=== PATIENT | female | born 1980 | race Caucasian/White ===

== ENCOUNTER 2018-03-19 | Emergency (ER) | payer SELFPAY | END 2018-03-19 17:04 | disposition home or self-care (01) ==

== ENCOUNTER 2018-06-04 08:26 | Emergency (ER) | payer SELFPAY ==
[2018-06-04] MEDS ORDERED: LORazepam 1 MG TAB PO ONE (09:02)
--- NOTE | 2018-06-04 09:30 | EDPHY ---
H & P Time Seen by Provider: 06/04/18 08:30 HPI/ROS: CHIEF COMPLAINT: I feel sick, itchy skin, painful fingers, rash HISTORY OF PRESENT ILLNESS: This is a 38-year-old female who presents with a number of complaints. Over the last month she has been bothered by intermittent nausea with 1 bout of vomiting. She reports intermittent episodes where she develops a rash the inside of her fingers, around her neck, in her scalp, on her legs, which is described as small macular papular rash, may be like hives, it is itchy. No fever. No lip swelling or eyelid swelling associated with the rash. No clear cause of the rash. Patient states she believes it looks like a fungal infection. states that he thinks is related to anxiety. She has been taking Benadryl 50 mg 1 to 2 times a day and has also smoked marijuana in an effort to control the rash. Currently there is no rash which is present. Patient denies any known allergens. Denies any known rheumatologic disorders. She reports that her finger tips are often burning and quite painful. She reports significant anxiety and significant itching of the skin. No fevers or chills, no chest pain, occasional cough, no shortness of breath. No palpitations. No diarrhea, urinary complaints, known renal disease, no liver abnormalities, no headache or lightheadedness. She does not have primary care physician. Moved to [place] 6 months ago. She does report drinking alcohol, using marijuana, and reports intermittent use of cocaine, last use 1-2 weeks ago. When asked why the patient present to the emergency department today, sounds like her thought they needed to get to the bottom of the issue. Again, she has no rash present at this time. Review of the patient's records: Patient was seen at [facility] in March for altered mental status and agitation thought to be related to cocaine use. REVIEW OF SYSTEMS: A comprehensive 10 system review of systems was reviewed and is otherwise negative aside from elements mentioned in the history of present illness and medical decision making. PAST MEDICAL HISTORY: Depression and anxiety. Past history of cocaine use. SOCIAL HISTORY: . Alcohol, no cigarettes, smokes marijuana, admits to using cocaine. VITAL SIGNS Reviewed by me. GENERAL: Well-developed, well-nourished, exceedingly anxious, somewhat agitated , pressured speech. HEENT: Atraumatic. Eyes: No icterus, no injection. Pupils are 5 mm bilaterally. Mouth: moist mucous membranes. No erythema or lesions. Neck: supple with no adenopathy. LUNGS: Persistent rhonchi at the right lower lobe, no wheezes. CARDIAC: Regular rate and rhythm, no rubs, murmurs or gallops. ABDOMEN: Soft, nontender, nondistended, bowel sounds normal. No right upper quadrant tenderness. BACK: No CVA tenderness. EXTREMITIES: No trauma. No edema. Range of motion is normal throughout. NEURO: Alert and oriented, grossly nonfocal. SKIN: Warm and dry, no rashes visible. Patient's right ear is slightly erythematous and she states it feels like it is on fire. PSYCHIATRIC: Normal mentation. Seems somewhat agitated. Smoking Status: Never smoked Constitutional: Initial Vital Signs Temperature (C) 37.4 C 06/04/18 08:32 Heart Rate 93 06/04/18 08:32 Respiratory Rate 16 06/04/18 08:32 Blood Pressure 150/98 H 06/04/18 08:32 O2 Sat (%) 95 06/04/18 08:32 O2 Delivery Mode Room Air Allergies/Adverse Reactions: No Known Allergies Allergy (Verified 06/04/18 08:36) Home Medications: Medication Instructions Recorded LORazepam [Ativan] 0.5 - 1 mg PO Q12 #8 tablet 06/04/18 Medical Decision Making ED Course/Re-evaluation: I did obtain interview with the patient and her as well as interviewing the patient on her own. Due to the patient's rhonchi and reports of occasional cough, chest x-ray was obtained. Laboratory evaluation including renal functions and liver function tests were ordered. Discussed with the patient the need to avoid excessive doses of Benadryl. She is quite thin and she may have some agitation secondary to overuse of Benadryl. I did provide 1 mg of Ativan. Chest x-ray: No acute findings noted. Patient's labs were unremarkable. I believe a significant portion of the patient's current symptomatology is related to anxiety coupled with illicit drug use. Discussed with her individually importance of obtaining a primary care physician , avoid illicit drug use, avoiding excessive amounts of Benadryl, stop using cocaine and or other illicit drugs, and to follow up as directed. Differential Diagnosis: Differential diagnosis for the patient's presenting complaint was considered including but not limited to anxiety, drug or alcohol use, drug or alcohol withdrawal, contact dermatitis, allergic reaction, renal insufficiency with uremia. - Data Points Laboratory Results: 06/04/18 06/04/18 10:34 10:17 POC Sodium 137 mEq/L mEq/L (135-145) POC Potassium 4.1 mEq/L mEq/L (3.3-5.0) POC Chloride 108.0 mEq/L mEq/L (97-110) POC Total CO2 27 mEq/L mEq/L (22-31) POC BUN 8 mg/dL mg/dL (7-23) POC Creatinine 0.6 mg/dL mg/dL (0.6-1.0) POC Glucose 89 mg/dL mg/dL (70-100) POC Calcium 10.0 mg/dL mg/dL (8.5-10.4) POC Total Bilirubin 0.7 mg/dL mg/dL (0.1-1.4) POC GGT 28 IU/L IU/L (5-65) POC AST 36 IU/L IU/L (14-46) POC ALT 12 IU/L IU/L (9-52) POC Alk Phosphatase 80 IU/L IU/L (38-126) POC Total Protein 8.6 g/dL H g/dL (6.3-8.2) POC Albumin 4.5 g/dL g/dL (3.5-5.0) POC Amylase 46 IU/L IU/L (30-110) Medications Given: Discontinued Medications Lorazepam (Ativan) 1 mg PO EDNOW ONE Stop: 06/04/18 09:03 Last Admin: 06/04/18 09:20 Dose: 1 mg Point of Care Test Results: CBC CBC Collection Date 06/04/18 CBC Collection Time 09:10 WBC 8.5 RBC 4.52 HGB 13.5 HCT 40.7 PLT 314 Neut # 6.2 Neut 72.9 LYMPH # 1.9 LYMPH 22.4 Other WBC # 0.4 Other WBC 4.7 MCV 90 Chemistry 06/04/18 06/04/18 10:34 10:17 POC Sodium 137 mEq/L mEq/L (135-145) POC Potassium 4.1 mEq/L mEq/L (3.3-5.0) POC Chloride 108.0 mEq/L mEq/L (97-110) POC Total CO2 27 mEq/L mEq/L (22-31) POC BUN 8 mg/dL mg/dL (7-23) POC Creatinine 0.6 mg/dL mg/dL (0.6-1.0) POC Glucose 89 mg/dL mg/dL (70-100) POC Calcium 10.0 mg/dL mg/dL (8.5-10.4) POC Total Bilirubin 0.7 mg/dL mg/dL (0.1-1.4) POC GGT 28 IU/L IU/L (5-65) POC AST 36 IU/L IU/L (14-46) POC ALT 12 IU/L IU/L (9-52) POC Alk Phosphatase 80 IU/L IU/L (38-126) POC Total Protein 8.6 g/dL H g/dL (6.3-8.2) POC Albumin 4.5 g/dL g/dL (3.5-5.0) POC Amylase 46 IU/L IU/L (30-110) Urine Collection Date 06/04/18 Collection Time 09:30 HCG Results Negative Departure - Departure Disposition: Home, Routine, Self-Care Clinical Impression: History of a rash, Anxiety, Pruritus Condition: Good Instructions: Acute Rash (ED), Anxiety (ED) Additional Instructions: You been given a short prescription for Ativan to use as needed for anxiety. Stop using illicit drugs including cocaine, methamphetamines, opiates. Do not drink alcohol in excessive quantities. Please follow up with your primary care physician for further evaluation of your symptoms as well as your rash. Consider taking a picture of the rash so further evaluation can be obtained. You been given referral to both doctor, Danny Delgado, at the [facility] offices as well as Dr. Yue Marcial who is offices are here at the [facility]. Referrals: Gustavo Delgado MD [[facility] Primary Care Provider] - As per Instructions Yue Marcial MD [Medical Doctor] - As per Instructions [facility] [[facility]] - As per Instructions (Call to establish care at [facility] or at [facility])
[2018-06-04 10:28] VITALS: BP 142/96
== END 2018-06-04 10:20 | disposition home or self-care (01) ==
LOC: CED 08:26
DX: L29.9 Pruritus, unspecified (principal); F41.8 Other specified anxiety disorders; R11.2 Nausea with vomiting, unspecified; F19.99 Other psychoactive substance use, unspecified with unspecified psychoactive substance-induced disorder; Z87.2 Personal history of diseases of the skin and subcutaneous tissue
CPT/HCPCS: 71046-PO; 80048-PO; 80076-PO; 82150-PO

== ENCOUNTER 2018-11-04 07:35 | Emergency (ER) | payer OTHER ==
[2018-11-04 07:39] VITALS: BP 143/95
--- NOTE | 2018-11-04 08:14 | EDPHY ---
H & P Stated Complaint: scalp infection Time Seen by Provider: 11/04/18 08:02 - Personal History LMP (Females 10-55): 15-21 Days Ago Current Tetanus/Diphtheria Vaccine: Yes - Medical/Surgical History Hx Asthma: No Hx Chronic Respiratory Disease: No Hx Diabetes: No Hx Cardiac Disease: No Hx Renal Disease: No Hx Cirrhosis: No Hx Alcoholism: No Other PMH: Denies. mj user. cocaine 05/18 - Social History Smoking Status: Never smoked Constitutional: Initial Vital Signs Temperature (C) 37.2 C 11/04/18 07:37 Heart Rate 104 H 11/04/18 07:37 Respiratory Rate 16 11/04/18 07:37 Blood Pressure 143/95 H 11/04/18 07:37 O2 Sat (%) 96 11/04/18 07:37 O2 Delivery Mode Room Air Allergies/Adverse Reactions: No Known Allergies Allergy (Verified 11/04/18 07:39) Home Medications: Medication Instructions Recorded LORazepam [Ativan] 0.5 - 1 mg PO Q12 #8 tablet 06/04/18 Fluconazole [Diflucan (*)] 150 mg PO DAILY #3 tab 11/04/18 Medical Decision Making ED Course/Re-evaluation: CHIEF COMPLAINT: Scalp fungus HISTORY OF PRESENT ILLNESS: 38-year-old female who claims that she has a scalp fungus. She states that she has had before. She states her scalp spine itching for several days. She denies any lesions, bugs, any other source. REVIEW OF SYSTEMS: A comprehensive 10 system review of systems is otherwise negative aside from elements mentioned in the history of present illness and medical decision making. PHYSICAL EXAM: HR, BP, O2 Sat, RR. Temp noted General Appearance: Alert, well hydrated, appropriate, and non-toxic appearing. Head: Atraumatic without scalp tenderness or obvious injury Eyes: Pupils equal, round, reactive to light and accommodation, EOMI, no trauma , no injection. Ears: Clear bilaterally, no perforation, normal landmarks Nose: Atraumatic, no rhinorrhea, clear. Throat: There is no erythema or exudates, no lesions, normal tonsils, mucus membranes moist. Neck: Supple, 2+ carotid upstroke, nontender, no lymphadenopathy. Respiratory: No retractions, no distress, no wheezes, and no accessory muscle use. Lungs are clear to auscultation bilaterally. Cardiovascular: Regular rate and rhythm, no murmurs, rubs, or gallops. Bilateral carotid, radial, dorsalis pedis, and posterior tibial pulses intact. Good capillary refill all extremities. Gastrointestinal: Abdomen is soft, nontender, non-distended, no masses, no rebound, no guarding, no peritoneal signs. Musculoskeletal: Normal active ROM of all extremities, atraumatic. Neurological: Alert, appropriate, and interactive. The patient has normal DTRs and non-focal cranial nerves, motor, sensory, and cerebellar exam. Skin: The scalp is somewhat red and excoriated but I cannot tell if it is from her scratching or not. Otherwise, No rashes, good turgor, no nodules on palpation. Past medical history: Noncontributory Past surgical history: Noncontributory Family history: Noncontributory Social history: Single, employed, does not abuse tobacco drugs or alcohol DIFFERENTIAL DIAGNOSIS: Includes but is not limited to: Scalp fungus, parasite, lice, topical dermatitis MEDICAL DECISION MAKING: This patient has a slightly red scalp. I can't tell if it is from fungus or any other source but I do not see any other abnormalities. She may just be itching her scalp quite a bit. I will treat her with fluconazole 150 mg q.day x3 and have her follow up with Dermatology. Departure - Departure Disposition: Home, Routine, Self-Care Clinical Impression: Fungal scalp infection Condition: Good Instructions: Tinea Versicolor (ED) Referrals: NONE *PRIMARY CARE P,. [Primary Care Provider] - As per Instructions [facility],. [Clinic] - As per Instructions Prescriptions: Fluconazole [Diflucan (*)] 150 mg PO DAILY #3 tab
== END 2018-11-04 08:27 | disposition home or self-care (01) ==
DX: B35.0 Tinea barbae and tinea capitis (principal)

== ENCOUNTER 2018-11-04 10:55 | Emergency (ER) | payer OTHER ==
[2018-11-04 11:01] VITALS: BP 149/98
--- NOTE | 2018-11-04 11:22 | EDPHY ---
H & P Stated Complaint: Skin rash Time Seen by Provider: 11/04/18 11:22 - Personal History LMP (Females 10-55): 15-21 Days Ago Current Tetanus/Diphtheria Vaccine: Yes - Medical/Surgical History Hx Asthma: No Hx Chronic Respiratory Disease: No Hx Diabetes: No Hx Cardiac Disease: No Hx Renal Disease: No Hx Cirrhosis: No Hx Alcoholism: No Other PMH: Denies. mj user. cocaine 05/18 - Social History Smoking Status: Never smoked Constitutional: Initial Vital Signs Temperature (C) 36.9 C 11/04/18 10:59 Heart Rate 112 H 11/04/18 10:59 Respiratory Rate 18 11/04/18 10:59 Blood Pressure 149/98 H 11/04/18 10:59 O2 Sat (%) 100 11/04/18 10:59 O2 Delivery Mode Room Air Allergies/Adverse Reactions: No Known Allergies Allergy (Verified 11/04/18 11:01) Home Medications: Medication Instructions Recorded LORazepam [Ativan] 0.5 - 1 mg PO Q12 #8 tablet 06/04/18 Fluconazole [Diflucan (*)] 150 mg PO DAILY #3 tab 11/04/18 Medical Decision Making ED Course/Re-evaluation: CHIEF COMPLAINT: Scalp fungus HISTORY OF PRESENT ILLNESS: 38-year-old female who claims that she has a scalp fungus. She states that she has had before. She states her scalp spine itching for several days. I saw this patient in the ER and she was discharged home with fluconazole 150 mg q.day x3 and have her follow up with Dermatology. After going home she took a shower and the Fluonazole but things that it is all over her body. She denies any lesions, bugs, any other source. REVIEW OF SYSTEMS: A comprehensive 10 system review of systems is otherwise negative aside from elements mentioned in the history of present illness and medical decision making. PHYSICAL EXAM: HR, BP, O2 Sat, RR. Temp noted General Appearance: Alert, well hydrated, appropriate, and non-toxic appearing. Head: Atraumatic without scalp tenderness or obvious injury Eyes: Pupils equal, round, reactive to light and accommodation, EOMI, no trauma , no injection. Ears: Clear bilaterally, no perforation, normal landmarks Nose: Atraumatic, no rhinorrhea, clear. Throat: There is no erythema or exudates, no lesions, normal tonsils, mucus membranes moist. Neck: Supple, 2+ carotid upstroke, nontender, no lymphadenopathy. Respiratory: No retractions, no distress, no wheezes, and no accessory muscle use. Lungs are clear to auscultation bilaterally. Cardiovascular: Regular rate and rhythm, no murmurs, rubs, or gallops. Bilateral carotid, radial, dorsalis pedis, and posterior tibial pulses intact. Good capillary refill all extremities. Gastrointestinal: Abdomen is soft, nontender, non-distended, no masses, no rebound, no guarding, no peritoneal signs. Musculoskeletal: Normal active ROM of all extremities, atraumatic. Neurological: Alert, appropriate, and interactive. The patient has normal DTRs and non-focal cranial nerves, motor, sensory, and cerebellar exam. Skin: The scalp is somewhat red and excoriated but I cannot tell if it is from her scratching or not. Otherwise, No rashes, good turgor, no nodules on palpation. Past medical history: Marijuana use, cocaine use Past surgical history: Noncontributory Family history: Noncontributory Social history: Single, employed, does not abuse tobacco or alcohol DIFFERENTIAL DIAGNOSIS: Includes but is not limited to: Scalp fungus, parasite, lice, topical dermatitis MEDICAL DECISION MAKIN-year-old female who claims that she has a scalp fungus. She states that she has had before. She states her scalp spine itching for several days. I saw this patient in the ER earlier today and she was discharged home with fluconazole 150 mg q.day x3 and have her follow up with Dermatology. After going home she took a shower and the Fluonazole but things that it is all over her body. I cannot find anything new on exam. I question if she has been using meth. 20mg PO Prednisone administered. Return precautions provided; patient is comfortable with this plan. Departure - Departure Disposition: Home, Routine, Self-Care Clinical Impression: Itchy skin Condition: Good Instructions: Itchy Skin (ED) Additional Instructions: 1. Follow-up with your primary doctor within 72 hours. 2. Return to the Emergency Department for fever, chest pain, shortness of breath , increasing pain or other worsening of condition. Referrals: [facility],. [Clinic] - As per Instructions Report Scribed for: Severino Crowell Report Scribed by: Nory Denton Date of Report: 11/04/18 Time of Report: 11:30
[2018-11-04] MEDS ORDERED: predniSONE 20 MG TAB PO ONE (11:32)
== END 2018-11-04 11:50 | disposition home or self-care (01) ==
DX: L29.9 Pruritus, unspecified (principal)
CPT/HCPCS: J7512

== ENCOUNTER 2018-11-04 12:13 | Emergency (ER) | payer OTHER ==
[2018-11-04 12:22] VITALS: BP 157/106
--- NOTE | 2018-11-04 12:52 | EDPHY ---
H & P Stated Complaint: Itchy scalp Time Seen by Provider: 11/04/18 12:51 - Personal History Current Tetanus/Diphtheria Vaccine: Yes Current Tetanus Diphtheria and Acellular Pertussis (TDAP): Yes - Medical/Surgical History Hx Asthma: No Hx Chronic Respiratory Disease: No Hx Diabetes: No Hx Cardiac Disease: No Hx Renal Disease: No Hx Cirrhosis: No Hx Alcoholism: No Other PMH: Denies. mj user. cocaine 05/18 - Social History Smoking Status: Never smoked Constitutional: Initial Vital Signs Temperature (C) 36.9 C 11/04/18 12:20 Heart Rate 111 H 11/04/18 12:20 Respiratory Rate 16 11/04/18 12:20 Blood Pressure 157/106 H 11/04/18 12:20 O2 Sat (%) 99 11/04/18 12:20 O2 Delivery Mode Room Air Allergies/Adverse Reactions: No Known Allergies Allergy (Verified 11/04/18 12:17) Home Medications: Medication Instructions Recorded NK [No Known Home Meds] 11/04/18 Medical Decision Making ED Course/Re-evaluation: CHIEF COMPLAINT: Psychiatric evaluation HISTORY OF PRESENT ILLNESS: must have 4 elements: Location, Quality, Severity , Duration, Timing, Context, Modifying Factors, Associated Signs and Symptoms REVIEW OF SYSTEMS: A comprehensive 10 system review of systems is otherwise negative aside from elements mentioned in the history of present illness and medical decision making. PHYSICAL EXAM: General Appearance: Alert, well hydrated, appropriate, and non-toxic appearing. Head: Atraumatic without scalp tenderness or obvious injury Eyes: Pupils equal, round, reactive to light and accommodation, EOMI, no trauma , no injection. Ears: Clear bilaterally, no perforation, normal landmarks Nose: Atraumatic, no rhinorrhea, clear. Throat: There is no erythema or exudates, no lesions, normal tonsils, mucus membranes moist. Neck: Supple, 2+ carotid upstroke, nontender, no lymphadenopathy. Respiratory: No retractions, no distress, no wheezes, and no accessory muscle use. Lungs are clear to auscultation bilaterally. Cardiovascular: Regular rate and rhythm, no murmurs, rubs, or gallops. Bilateral carotid, radial, dorsalis pedis, and posterior tibial pulses intact. Good capillary refill all extremities. Gastrointestinal: Abdomen is soft, nontender, non-distended, no masses, no rebound, no guarding, no peritoneal signs. Musculoskeletal: Normal active ROM of all extremities, atraumatic. Neurological: Alert, appropriate, and interactive. The patient has normal DTRs and non-focal cranial nerves, motor, sensory, and cerebellar exam. Skin: No rashes, good turgor, no nodules on palpation. Past medical history: Past surgical history: Family history: Social history: DIFFERENTIAL DIAGNOSIS: The differential diagnosis for the patient's depression included but was not limited to functional and major depression, situational depression, medication side effect, drugs, and alcohol abuse. MEDICAL DECISION MAKING: Patient is in no acute distress and is hemodynamically stable. We are awaiting psychiatric team's evaluation. Patient has known history of psychiatric disorders and is here for evaluation. Departure - Departure Referrals: NONE *PRIMARY CARE P,. [Primary Care Provider] - As per Instructions
== END 2018-11-04 13:00 | disposition left against medical advice (07) ==
DX: Z53.21 Procedure and treatment not carried out due to patient leaving prior to being seen by health care provider (principal)

== ENCOUNTER 2018-11-26 23:28 | Emergency (ER) | payer SELFPAY ==
[2018-11-26] MEDS ORDERED: LORazepam 1 MG TAB PO ONE (23:31)
--- NOTE | 2018-11-27 01:21 | EDPHY ---
H & P Stated Complaint: wetoh/cocaine - Personal History LMP (Females 10-55): 8-14 Days Ago Current Tetanus Diphtheria and Acellular Pertussis (TDAP): Yes - Medical/Surgical History Hx Asthma: No Hx Chronic Respiratory Disease: No Hx Diabetes: No Hx Cardiac Disease: No Hx Renal Disease: No Hx Cirrhosis: No Hx Alcoholism: No Other PMH: Denies. mj user. cocaine 05/18 - Social History Smoking Status: Never smoked Time Seen by Provider: 11/26/18 23:28 HPI/ROS: Chief complaint: Polysubstance abuse History of present illness: This is a 38-year-old female brought to the emergency department by EMS for polysubstance abuse. According to EMS police were called patient's house for loud noise. EMS was called for medical clearance to go to detox. However was noted that in addition alcohol patient had done cocaine this evening. She is therefore transported here. On my evaluation she has no complaints. Review of systems: A 10 point review of systems was obtained and other than described above was negative (Ej Bradley) - Physical Exam Exam: General Appearance: Alert, nontoxic. Eyes: Pupils equal and round no pallor or injection. ENT, Mouth: Mucous membranes moist. Respiratory: There are no retractions, lungs are clear to auscultation. Cardiovascular: Regular rate and rhythm. Gastrointestinal: Abdomen is soft and non tender, no masses, bowel sounds normal. Neurological: Alert. Strength and sensation intact and symmetrical. Skin: Warm and dry, no rashes. Musculoskeletal: Neck is supple non tender. Extremities are symmetrical, full range of motion. Psychiatric: Appears emotionally unstable going between easily conversant, crying and laughing. (Ej Bradley) Constitutional: Initial Vital Signs Temperature (C) 37 C 11/26/18 23:31 Heart Rate 100 11/26/18 23:31 Respiratory Rate 18 11/26/18 23:31 Blood Pressure 143/83 H 11/26/18 23:31 O2 Sat (%) 95 11/26/18 23:31 O2 Delivery Mode Room Air Allergies/Adverse Reactions: No Known Allergies Allergy (Verified 11/26/18 23:31) Home Medications: Medication Instructions Recorded Hydroxyzine HCl 11/26/18 Medical Decision Making ED Course/Re-evaluation: Patient seen under the supervision of my secondary supervising physician Dr. Ulysses Justin. Patient presents to the emergency department for evaluation after being found intoxicated and admitting to cocaine use. She has no complaints to me. As she is somewhat agitated she is given 2 mg of Ativan orally. She will be observed until she is sobered up enough to be re- evaluated. Care of patient is turned over to my attending physician Dr. Ulysses Justin at end of shift. (Ej Bradley) Differential Diagnosis: Included but not limited to alcohol intoxication, poly substance abuse (Ej Bradley) Other Provider: 0100 care assumed from PA pending improvement in the patient's mental status secondary to her intoxication. 0500 Patient is now awake and appropriate. Ambulating unassisted to the bathroom. No current complaints. Patient is tolerating oral fluids. Patient is ready for discharge with sober ride. (Ulysses Gallo) - Data Points Medications Given: Discontinued Medications Lorazepam (Ativan) 2 mg PO EDNOW ONE Stop: 11/26/18 23:32 Last Admin: 11/26/18 23:49 Dose: 2 mg Departure - Departure Disposition: Home, Routine, Self-Care Clinical Impression: Polysubstance abuse Condition: Good Instructions: Polysubstance Abuse (ED) Referrals: Patient,NotPresent [Primary Care Provider] - As per Instructions
[2018-11-27 05:02] VITALS: BP 110/63
== END 2018-11-27 05:12 | disposition home or self-care (01) ==
LOC: EDUNIT#
DX: F14.929 Cocaine use, unspecified with intoxication, unspecified (principal); F10.920 Alcohol use, unspecified with intoxication, uncomplicated